=== PATIENT | female | born 2005 | race Two or more races ===

== ENCOUNTER 2023-07-09 12:51 | Emergency (ER) | payer BC, MEDICAID ==
[~2023-07-09] VITALS: Ht 175.3 cm; Wt 107.7 kg
[~2023-07-09 12:51] MED LIST: FLUO10CA28 PO; LAMO100T PO
[2023-07-09 12:57] VITALS: BP 186/70; PULSE 109; RESP 18; TEMP 98; O2SAT 98
[2023-07-09] MEDS ORDERED: AZIT250T12 PO (13:00)
== END 2023-07-09 13:05 | disposition home or self-care (01) ==
LOC: ER 12:52
DX: J20.9 Acute bronchitis, unspecified (principal); F32.A Depression, unspecified; Z91.010 Allergy to peanuts; Z91.018 Allergy to other foods; Z79.899 Other long term (current) drug therapy
CPT/HCPCS: 99283